=== PATIENT | male | born 1960 | race Caucasian/White ===

== ENCOUNTER 2018-05-06 16:28 | Emergency (ER) | payer OTHER ==
[~2018-05-06] VITALS: Ht 180.3 cm; Wt 107.0 kg
[2018-05-06 19:06] LABS: CHLORIDE 108 mEq/L (99-109); POTASSIUM 4.4 mEq/L (3.7-5.4); SODIUM 138 mEq/L (136-147)
[2018-05-06 19:08] LABS: GLUCOSE 92 mg/dL (70-99)
[2018-05-06 19:11] LABS: GFR ESTIMATE (CALCULATED) > 59 mL/min/ (58.99-99999)
[2018-05-06 19:12] LABS: UREA NITROGEN (BUN) 14 mg/dL (9-23)
[2018-05-06] MEDS ORDERED: INDOCIN50 MG PO (19:22)
[2018-05-06 19:32] VITALS: BP 151/89
== END 2018-05-06 19:34 | disposition home or self-care (01) ==
LOC: RME 16:28 → EME 16:28 → RME 19:34
PROVIDERS: Physician Assistant
DX: M72.2 Plantar fascial fibromatosis (principal); Z87.891 Personal history of nicotine dependence
CPT/HCPCS: 80048; 99281; 99284